=== PATIENT | male | born 1975 | race Caucasian/White ===

== ENCOUNTER 2019-03-29 19:13 | Emergency (ER) | payer BC, OTHER ==
[~2019-03-29] VITALS: Ht 185.4 cm; Wt 81.6 kg
[2019-03-29] MEDS ORDERED: TETANUS/DIPHTHERIA TOX ADULT 0.5 ML SYR IM ONE (19:45)
[2019-03-29] MEDS ORDERED: HYDROCODONE/APAP 10MG-325MG TAB PO NR (19:45)
[2019-03-29] MEDS ORDERED: LIDOCAINE HCL 2% 2 ML AMP INJ ONE (19:45)
[2019-03-29] MEDS ORDERED: CEFAZOLIN SOD 1 GM/NS 50ML 50 ML IV ONE (20:15)
[2019-03-29] MEDS ORDERED: CEFAZOLIN SOD 1 GM VIAL ONE (20:25)
--- NOTE | 2019-03-29 20:26 | Diagnostic Imaging Report ---
HAND 3+ VIEWS LEFT - 3 views HISTORY: Pain. Smashed fingers. COMPARISON: None available. FINDINGS: Bones: Comminuted displaced fractures of the distal phalanx of the second digit and third digits. Nondisplaced fracture of the tuft of the distal phalanx of the fourth digit. Overlying soft tissue swelling. Joints: The joint spaces are well-maintained. Soft tissues: The soft tissues appear unremarkable. IMPRESSION: Comminuted displaced fractures of the distal phalanx of the second digit and third digits. Nondisplaced fracture of the tuft of the distal phalanx of the fourth digit. Signed by: Dr. Vin Colvin M.D. on 03/29/2019 8:24 PM
[2019-03-29] MEDS ORDERED: CEFAZOLIN SOD 1 GM VIAL IM ONE (20:30)
[2019-03-29] MEDS ORDERED: BACITRACIN ZINC 0.9GM TP ONE (20:37)
== END 2019-03-30 00:35 | disposition home or self-care (01) ==
LOC: ER 19:13
DX: S62.631B Displaced fracture of distal phalanx of left index finger, initial encounter for open fracture (principal); S62.663A Nondisplaced fracture of distal phalanx of left middle finger, initial encounter for closed fracture; S62.635B Displaced fracture of distal phalanx of left ring finger, initial encounter for open fracture; S62.667A Nondisplaced fracture of distal phalanx of left little finger, initial encounter for closed fracture; W23.1XXA Caught, crushed, jammed, or pinched between stationary objects, initial encounter; Y99.0 Civilian activity done for income or pay
CPT/HCPCS: 12001; 29130; 73130; 99283; J0690; J2001; 90714

== ENCOUNTER 2023-11-04 13:48 | Emergency (ER) | payer BC ==
[~2023-11-04] VITALS: Ht 182.9 cm; Wt 95.3 kg
[2023-11-04 14:02] VITALS: TEMP 98.9
[2023-11-04 14:15] LABS: BASOPHILS % 0.2 % (0.0-1.0); EOSINOPHILS % 0.1 % (0.0-6.0); HEMATOCRIT 39.6 % (38.2-49.6); HEMOGLOBIN 13.1 g/dL (14.0-18.0); LYMPHOCYTES # (AUTO) 1.5 (1.0-3.2); LYMPHOCYTES % 16.8 % (18.0-39.1); MEAN CORPUSCULAR HGB CONC 33.1 g/dL (31-35); MEAN CORPUSCULAR VOLUME 96.8 fL (81-99); MONOCYTES # (AUTO) 0.7 (0.2-0.8); MONOCYTES % 7.8 % (4.4-11.3); NEUTROPHILS # (AUTO) 6.6 (2.1-6.9); NEUTROPHILS % 74.9 % (38.7-80.0); PLATELET COUNT 204 x10e3/uL (140-360); RED BLOOD COUNT 4.09 x10e6/uL (4.3-5.7); RED CELL DISTRIBUTION WIDTH 12.6 % (11.7-14.4); WHITE BLOOD COUNT 8.77 x10e3/uL (4.8-10.8)
[2023-11-04 14:34] LABS: ALBUMIN 4.6 g/dL (3.5-5.0); ALBUMIN/GLOBULIN RATIO 1.7 (0.8-2.0); ANION GAP 21.9 mmol/L (8-16); CALCIUM 9.6 mg/dL (8.4-10.2); CREATININE, SERUM 0.77 mg/dL (0.72-1.25); POTASSIUM 3.9 mmol/L (3.5-5.1); TOTAL PROTEIN 7.3 g/dL (6.5-8.1)
[2023-11-04 16:04] VITALS: PULSE 77; RESP 16; O2SAT 100
== END 2023-11-04 16:47 | disposition home or self-care (01) ==
LOC: ER 13:51
DX: R07.89 Other chest pain (principal); I10 Essential (primary) hypertension; E78.5 Hyperlipidemia, unspecified; Z96.641 Presence of right artificial hip joint; F17.220 Nicotine dependence, chewing tobacco, uncomplicated
CPT/HCPCS: 36415; 71045; 80053; 84484; 85025; 93005; 99284